=== PATIENT | male | born 2000 | race Two or more races ===

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

== ENCOUNTER 2022-06-09 13:47 | Inpatient (IN) ==
[2022-06-09] MEDS ORDERED: Lactated Ringers 1000 ml BAG 1,000 ML IV ONE ×2 (13:54→15:20)
[2022-06-09] MEDS ORDERED: Ondansetron 4 mg VIAL 2 MG/ML 2 ml VIAL IV ONE ×2 (13:55→17:32)
[2022-06-09 14:24] LABS: Hematocrit 49 % (42-52); Hemoglobin 15.4 g/dL (14.0-18.0); Mean Corpuscular HGB Conc 32 g/dL (31-36); Mean Corpuscular Hemoglobin 26 pg (27-31); Mean Corpuscular Volume 81 fL (80-94); Mean Platelet Volume 10.4 fL (7.4-10.4); Platelet Count 268 10^3/uL (150-450); Red Blood Count 6.04 10^6 /uL (4.18-5.48); Red Cell Distribution Width 14 % (10-15)
[2022-06-09 14:28] LABS: ABS Basophils 0.2 10^3/ul (0-0.2); ABS Lymphocytes 0.9 10^3/ul (1.0-4.8); ABS Monocytes 1.5 10^3/ul (0-0.8); ABS Neutrophils 20.5 10^3/ul (1.5-7.7); Nucleated Red Blood Cells % 0.1
[2022-06-09] MEDS ORDERED: Dextrose 50% Syringe 50 ml 25 GM/50 ML SYRINGE IV PUSH PRN (14:56)
[2022-06-09 15:06] LABS: ALT 13 U/L (7-52); AST 13 U/L (13-39); Albumin 4.5 g/dL (3.2-5.2); Albumin/Globulin Ratio 1.6 (1-3); Alkaline Phosphatase 130 U/L (35-149); Blood Urea Nitrogen 52 mg/dL (6-24); Calcium 8.8 mg/dL (8.6-10.3); Chloride 90 mmol/L (101-111); Globulin 2.9 g/dL (2-4); Magnesium 2.5 mg/dL (1.9-2.7); Phosphorus 5.2 mg/dL (2.5-5.0); Sodium 126 mmol/L (135-145); Total Protein 7.4 g/dL (6.4-8.9); eGFR CKD-EPI 41.1 (>60)
[2022-06-09 15:25] LABS: CO2 Carbon Dioxide < 7 mmol/L (22-32); Glucose 662 mg/dL (70-100)
[2022-06-09] MEDS ORDERED: Insulin Infusion 100unit/100mL 100 UNIT/100 ML BAG IV ONE ×2 (15:30)
[2022-06-09] MEDS ORDERED: Lactated Ringers 1000 ml BAG 1,000 ML IV SCH (16:00)
[2022-06-09] MEDS ORDERED: Ondansetron 4 mg VIAL 2 MG/ML 2 ml VIAL IV PRN (16:02)
[2022-06-09] MEDS ORDERED: Albuterol HFA INHALER 8 gm MDI INH PRN (16:07)
[2022-06-09 17:51] LABS: Blood Urea Nitrogen 49 mg/dL (6-24); Chloride 95 mmol/L (101-111); Potassium 4.8 mmol/L (3.5-5.0); Sodium 130 mmol/L (135-145)
[2022-06-09] MEDS ORDERED: cefTRIAXone 1 gm/50 mL D5W 1 GM/50 ML BAG IV SCH (18:15)
[2022-06-09 18:17] LABS: CO2 Carbon Dioxide < 7 mmol/L (22-32); Glucose 545 mg/dL (70-100)
[2022-06-09] MEDS: Lactated Ringers 1000 ml BAG 1,000 ML IV SCH (18:53)
[2022-06-09 19:04] LABS: Urine Color Straw
[2022-06-09 19:05] LABS: Urine Appearance Clear; Urine Bilirubin Negative (Negative); Urine Glucose 2+ (500mg/dL) (Negative); Urine Ketones 4+ (>=160mg/dL) (Negative); Urine Nitrite Negative (Negative); Urine Protein 1+ (30 mg/dL) (Negative); Urine Specific Gravity 1.028 (1.002-1.030); Urine Urobilinogen 0.2 (Negative) (Negative); Urine pH 5.5 (5.0-9.0)
[2022-06-09 19:11] LABS: Urine Bacteria Absent (Absent); Urine Red Blood Cell Absent (Absent); Urine White Blood Cell Absent (Absent)
[2022-06-09 19:12] LABS: Urine Benzodiazepine Screen None Detected (None Detect); Urine Cannabinoids Screen Presumptive Positive (None Detect); Urine Opiates Screen None Detected (None Detect)
[2022-06-09 21:07] LABS: Calcium 8.9 mg/dL (8.6-10.3); Potassium 4.8 mmol/L (3.5-5.0); eGFR CKD-EPI 58.1 (>60)
[2022-06-10] MEDS: Lactated Ringers 1000 ml BAG 1,000 ML IV SCH ×2 (00:15→05:48)
[2022-06-10 02:42] LABS: Calcium 8.6 mg/dL (8.6-10.3); Potassium 4.4 mmol/L (3.5-5.0); eGFR CKD-EPI 70.9 (>60)
[2022-06-10 06:23] LABS: ABS Basophils 0.2 10^3/ul (0-0.2); ABS Lymphocytes 0.6 10^3/ul (1.0-4.8); ABS Monocytes 0.9 10^3/ul (0-0.8); ABS Neutrophils 12.8 10^3/ul (1.5-7.7); Hematocrit 41 % (42-52); Hemoglobin 14.2 g/dL (14.0-18.0); Lymphocyte % 3.8 %; Mean Corpuscular HGB Conc 35 g/dL (31-36); Mean Corpuscular Hemoglobin 26 pg (27-31); Mean Corpuscular Volume 75 fL (80-94); Mean Platelet Volume 8.8 fL (7.4-10.4); Nucleated Red Blood Cells % 0.1; Platelet Count 222 10^3/uL (150-450); Red Blood Count 5.47 10^6 /uL (4.18-5.48); Red Cell Distribution Width 13 % (10-15); White Blood Count 14.4 10^3/uL (3.5-10.8)
[2022-06-10 06:47] LABS: Albumin 3.5 g/dL (3.2-5.2); Albumin/Globulin Ratio 1.6 (1-3); Calcium 8.3 mg/dL (8.6-10.3); Globulin 2.2 g/dL (2-4); Magnesium 1.8 mg/dL (1.9-2.7); Total Bilirubin 0.5 mg/dL (0.2-1.0); Total Protein 5.7 g/dL (6.4-8.9); eGFR CKD-EPI 95.9 (>60)
[2022-06-10] MEDS ORDERED: Magnesium Sulfate 2 gm BAG 2 GM/50 ML BAG IVPB ONE (06:57)
[2022-06-10] MEDS ORDERED: D5LR 1000 ml BAG 1,000 ML IV SCH (07:00)
[2022-06-10 11:05] LABS: Calcium 8.6 mg/dL (8.6-10.3); Magnesium 3.2 mg/dL (1.9-2.7); Potassium 3.8 mmol/L (3.5-5.0); eGFR CKD-EPI 83.2 (>60)
[2022-06-10] MEDS ORDERED: D5W NS 0.9% 20Meq KCL 1000 ml 1,000 ML IV SCH ×3 (12:00→16:34)
[2022-06-10] MEDS: Enoxaparin 40 MG/0.4 ML SYR SUBCUT SCH (12:43)
[2022-06-10] MEDS: Insulin Infusion 100unit/100mL 100 UNIT/100 ML BAG IV SCH ×2 (13:09→16:44)
[2022-06-10 14:09] LABS: Calcium 8.6 mg/dL (8.6-10.3); Magnesium 2.6 mg/dL (1.9-2.7); Potassium 3.3 mmol/L (3.5-5.0); eGFR CKD-EPI 89.1 (>60)
[2022-06-10 19:13] LABS: Calcium 8.4 mg/dL (8.6-10.3); Magnesium 2.3 mg/dL (1.9-2.7); Potassium 3.1 mmol/L (3.5-5.0); eGFR CKD-EPI 97.9 (>60)
[2022-06-10] MEDS ORDERED: Potassium Chlor 20 meq TAB.ER PO ONE (19:30)
[2022-06-10] MEDS: D5W NS 0.9% 20Meq KCL 1000 ml 1,000 ML IV SCH (20:28)
[2022-06-10] MEDS: KCL 20 MEQ/100 ML IVPREMIX 20 MEQ/100 ML BAG IV SCH ×2 (20:30→22:34)
[2022-06-11 02:21] LABS: Albumin 3.5 g/dL (3.2-5.2); Calcium 8.3 mg/dL (8.6-10.3); Magnesium 2.2 mg/dL (1.9-2.7); Potassium 3.4 mmol/L (3.5-5.0); Total Bilirubin 0.8 mg/dL (0.2-1.0)
[2022-06-11 02:27] LABS: Albumin/Globulin Ratio 1.6 (1-3); Globulin 2.2 g/dL (2-4); Total Protein 5.7 g/dL (6.4-8.9)
[2022-06-11] MEDS ORDERED: Dextrose 50% Syringe 50 ml 25 GM/50 ML SYRINGE IV PUSH PRN (02:47)
[2022-06-11] MEDS ORDERED: Insulin GLARGINE 100 un/ml 10 ml VIAL SUBCUT ONE ×2 (03:00→12:11)
[2022-06-11 05:02] LABS: ABS Basophils 0.1 10^3/ul (0-0.2); ABS Eosinophils 0.1 10^3/ul (0-0.6); ABS Lymphocytes 1.1 10^3/ul (1.0-4.8); ABS Monocytes 0.8 10^3/ul (0-0.8); ABS Neutrophils 8.4 10^3/ul (1.5-7.7); Eosinophil % 0.7 %; Hematocrit 35 % (42-52); Lymphocyte % 10.5 %; Mean Corpuscular HGB Conc 34 g/dL (31-36); Mean Corpuscular Hemoglobin 26 pg (27-31); Mean Corpuscular Volume 75 fL (80-94); Mean Platelet Volume 9.2 fL (7.4-10.4); Nucleated Red Blood Cells % 0.1; Platelet Count 191 10^3/uL (150-450); Red Blood Count 4.68 10^6 /uL (4.18-5.48); Red Cell Distribution Width 14 % (10-15); White Blood Count 10.5 10^3/uL (3.5-10.8)
[2022-06-11 05:42] LABS: Calcium 8.4 mg/dL (8.6-10.3); Potassium 3.4 mmol/L (3.5-5.0); eGFR CKD-EPI 124.6 (>60)
[2022-06-11] MEDS: D5W NS 0.9% 20Meq KCL 1000 ml 1,000 ML IV SCH (05:52)
[2022-06-11] MEDS ORDERED: NS 0.45% KCl 20 Meq 1000 ml 1,000 ML IV SCH (07:00)
[2022-06-11] MEDS: Enoxaparin 40 MG/0.4 ML SYR SUBCUT SCH (10:05)
[2022-06-11 11:23] LABS: Blood Urea Nitrogen 15 mg/dL (6-24); CO2 Carbon Dioxide 16 mmol/L (22-32); Calcium 8.2 mg/dL (8.6-10.3); Chloride 103 mmol/L (101-111); Glucose 314 mg/dL (70-100); Sodium 134 mmol/L (135-145)
[2022-06-11 11:35] LABS: Anion Gap 15 mmol/L (2-11)
[2022-06-11 16:53] LABS: Calcium 8.5 mg/dL (8.6-10.3); Potassium 3.1 mmol/L (3.5-5.0); eGFR CKD-EPI 129.1 (>60)
[2022-06-11] MEDS ORDERED: Potassium Chloride LIQUID 20 MEQ/15 ML LIQUID PO ONE (17:11)
[2022-06-11 21:19] LABS: Calcium 8.5 mg/dL (8.6-10.3); Potassium 3.4 mmol/L (3.5-5.0); eGFR CKD-EPI 128.2 (>60)
[2022-06-11] MEDS ORDERED: Potassium Chlor 20 meq TAB.ER PO ONE (21:36)
[2022-06-12] MEDS ORDERED: Potassium Chlor 20 meq TAB.ER PO ONE ×4 (07:15→18:00)
[2022-06-12 08:17] LABS: ABS Basophils 0.1 10^3/ul (0-0.2); ABS Eosinophils 0.1 10^3/ul (0-0.6); ABS Lymphocytes 2.1 10^3/ul (1.0-4.8); ABS Monocytes 0.8 10^3/ul (0-0.8); ABS Neutrophils 4.7 10^3/ul (1.5-7.7); Eosinophil % 1.1 %; Hematocrit 35 % (42-52); Hemoglobin 12.6 g/dL (14.0-18.0); Lymphocyte % 27.2 %; Mean Corpuscular HGB Conc 36 g/dL (31-36); Mean Corpuscular Hemoglobin 26 pg (27-31); Mean Corpuscular Volume 73 fL (80-94); Mean Platelet Volume 9.2 fL (7.4-10.4); Nucleated Red Blood Cells % 0.1; Platelet Count 209 10^3/uL (150-450); Red Blood Count 4.82 10^6 /uL (4.18-5.48); Red Cell Distribution Width 13 % (10-15); White Blood Count 7.8 10^3/uL (3.5-10.8)
[2022-06-12 08:27] LABS: Calcium 8.8 mg/dL (8.6-10.3); Magnesium 2.2 mg/dL (1.9-2.7); eGFR CKD-EPI 126.8 (>60)
[2022-06-12] MEDS: Enoxaparin 40 MG/0.4 ML SYR SUBCUT SCH (08:54)
[2022-06-12] MEDS ORDERED: Insulin GLARGINE 100 un/ml 10 ml VIAL SUBCUT SCH (09:00)
[2022-06-12 09:37] LABS: Hypochromasia 2+; Microcytosis 2+
[2022-06-12] MEDS ORDERED: Insulin GLARGINE 100 un/ml 10 ml VIAL SUBCUT ONE (09:48)
[2022-06-12] MEDS ORDERED: Dextrose 50% Syringe 50 ml 25 GM/50 ML SYRINGE IV PUSH PRN ×2 (09:49→16:50)
[2022-06-12] MEDS ORDERED: Potassium Chloride LIQUID 20 MEQ/15 ML LIQUID PO ONE (09:53)
[2022-06-12 12:12] LABS: Anion Gap 14 mmol/L (2-11); Blood Urea Nitrogen 17 mg/dL (6-24); CO2 Carbon Dioxide 20 mmol/L (22-32); Calcium 8.6 mg/dL (8.6-10.3); Chloride 96 mmol/L (101-111); Glucose 315 mg/dL (70-100); Potassium 3.2 mmol/L (3.5-5.0); Sodium 130 mmol/L (135-145); eGFR CKD-EPI 126.3 (>60)
[2022-06-12 12:41] LABS: Phosphorus < 1.0 mg/dL (2.5-5.0)
[2022-06-12] MEDS ORDERED: Potassium Phosphate IV 30 MMOLE in NS 0.9% 250 ml 250 ML IVPB ONE (13:00)
[2022-06-12 13:25] LABS: Venous Bicarbonate HCO3 21.2 mmol/L (24-28)
[2022-06-12] MEDS: NS 0.9% 1000 ml BAG 1,000 ML IV SCH ×2 (13:44→23:47)
[2022-06-12 15:21] LABS: Calcium 8.2 mg/dL (8.6-10.3); Magnesium 2.1 mg/dL (1.9-2.7); Phosphorus 2.1 mg/dL (2.5-5.0); Potassium 4.1 mmol/L (3.5-5.0); eGFR CKD-EPI 119.8 (>60)
[2022-06-12 18:44] LABS: Calcium 8.4 mg/dL (8.6-10.3); Magnesium 2.2 mg/dL (1.9-2.7); Phosphorus 1.7 mg/dL (2.5-5.0); Potassium 3.6 mmol/L (3.5-5.0); eGFR CKD-EPI 126.8 (>60)
[2022-06-13 00:31] LABS: Calcium 8.1 mg/dL (8.6-10.3); Phosphorus 1.8 mg/dL (2.5-5.0); Potassium 3.4 mmol/L (3.5-5.0); eGFR CKD-EPI 135.6 (>60)
[2022-06-13] MEDS ORDERED: Potassium Chlor 20 meq TAB.ER PO ONE (05:11)
[2022-06-13] MEDS ORDERED: Potassium Phosphate IV 15 MMOLE in NS 0.9% 250 ml 250 ML IVPB ONE (06:00)
[2022-06-13 08:25] LABS: ABS Eosinophils 0.1 10^3/ul (0-0.6); ABS Monocytes 0.5 10^3/ul (0-0.8); ABS Neutrophils 2.9 10^3/ul (1.5-7.7); Hematocrit 33 % (42-52); Hemoglobin 11.7 g/dL (14.0-18.0); Lymphocyte % 36.3 %; Mean Corpuscular HGB Conc 35 g/dL (31-36); Mean Corpuscular Hemoglobin 26 pg (27-31); Mean Corpuscular Volume 74 fL (80-94); Mean Platelet Volume 8.4 fL (7.4-10.4); Platelet Count 238 10^3/uL (150-450); Red Blood Count 4.52 10^6 /uL (4.18-5.48); Red Cell Distribution Width 13 % (10-15); White Blood Count 5.4 10^3/uL (3.5-10.8)
[2022-06-13] MEDS ORDERED: Insulin GLARGINE 100 un/ml 10 ml VIAL SUBCUT SCH (09:00)
[2022-06-13] MEDS: Enoxaparin 40 MG/0.4 ML SYR SUBCUT SCH (09:02)
[2022-06-13 09:14] LABS: Calcium 8.5 mg/dL (8.6-10.3); Phosphorus 2.2 mg/dL (2.5-5.0); Potassium 3.5 mmol/L (3.5-5.0); eGFR CKD-EPI 133.9 (>60)
[2022-06-13] MEDS: NS 0.9% 1000 ml BAG 1,000 ML IV SCH (10:42)
[2022-06-13 12:08] VITALS: BP 130/86
[2022-06-20 08:26] LABS: Anti GAD 65 Antibody 0.51 nmol/L (<= 0.02); Islet Antigen 2 Antibody 0.59 nmol/L (<=0.02); Zinc Transporter 8 (ZnT8) Ab >500 U/mL (<15.0)
== END 2022-06-13 13:30 | disposition home or self-care (01) | DRG 420 ==
LOC: ED 13:47 → EDHOLD 15:42 → SUATTDRO 15:42 → ICU 19:10 → MED 06-12 01:56
PROVIDERS: ADMIT Internal Medicine; ATTEND Internal Medicine